=== PATIENT | male | born 1965 | race Caucasian/White ===

== ENCOUNTER → 2016-08-21 | Outpatient (CLI) | payer OTHER | LOC: BRMIMAGING 11:28 | PROVIDERS: ATTEND Internal Medicine | DX: M20.11 Hallux valgus (acquired), right foot (principal); M20.12 Hallux valgus (acquired), left foot | CPT/HCPCS: 73630-PO ==

== ENCOUNTER → 2016-11-26 | Outpatient (CLI) | payer OTHER | LOC: FIMAGING 15:07 | PROVIDERS: ATTEND Internal Medicine | DX: M71.21 Synovial cyst of popliteal space [Baker], right knee (principal) ==

== ENCOUNTER → 2017-08-18 | Outpatient (CLI) | payer OTHER | LOC: FIMAGING 17:18 | PROVIDERS: ATTEND Orthopaedic Surgery | DX: M79.605 Pain in left leg (principal) ==